=== PATIENT | female | born 1980 | race Caucasian/White ===

== ENCOUNTER 2019-12-24 06:25 | Day surgery (SDC) | payer BC ==
[2019-12-20 11:56] VITALS: BMI 29.7
--- NOTE | 2019-12-21 15:52 | P.HPOB ---
History of Present Illness H&P Date: 12/21/19 Chief Complaint: Family planning: Menorrhagia Patient is a 39-year-old female who has heavy vaginal bleeding that is debilitating. Symptoms have been going on for several years and progressively worsened and got to the point where she is unable to function well. She is a s moker therefore are mobile manipulation is not a good option. She is completed her family planning and therefore would actually like a tubal ligation as well. She is scheduled for a D&C with hysteroscopy and NovaSure and a laparoscopic tubal occlusion. Risks/benefits/alternatives were discussed with patient in detail and did include but were not limited to bleeding and infection, Paxil bladder or bowel, past surgeries nerve injuries ureteral injuries Past Medical History Additional Past Medical History / Comment(s): HEAVY MENSES History of Any Multi-Drug Resistant Organisms: None Reported Past Surgical History: Section Additional Past Surgical History / Comment(s): C-SEC X 2 Past Anesthesia/Blood Transfusion Reactions: No Reported Reaction Smoking Status: Current every day smoker - Past Family History Mother Family Medical History: No Reported History Medications and Allergies Home Medications Medication Instructions Recorded Confirmed Type HYDROcodone/APAP 10-325MG [[place] 1 tab PO TID PRN 09/25/19 12/20/19 History 10-325] Ibuprofen [Motrin] 800 mg PO Q8H PRN 09/25/19 12/20/19 History Allergies Allergy/AdvReac Type Severity Reaction Status Date / Time No Known Allergies Allergy Verified 12/20/19 11:50 Exam Osteopathic Statement: *. No significant issues noted on an osteopathic structural exam other than those noted in the History and Physical/Consult. - OBG Physical Exam Breast: both: normal (no masses) Abdomen: bowel sounds normal, no diffuse tenderness, no bruit present, no guarding noted, no hepatomegaly, no splenomegaly, no mass Vulva: both: normal Vagina: normal moisture, no discharge Cervix: no lesion, no discharge Uterus: normal size, normal contour Adnexa: both: normal Anus/Rectum: normal perianal skin, no rectal mass, no hemorrhoids, heme negative
[~2019-12-24 06:25] MED LIST: DEXAMETHASONE SOD PHOSPHATE 10 MG/ML 1 ML VIAL IV ONE; LACTATED RINGERS 1,000 ML IV SCH; LIDOCAINE 1% (10MG/ML) FOR IV START INTRADERMA PRN; Pre Op ABX Message 1 EACH MISC MISCELLANE ONE
[2019-12-24] MEDS: ONDANSETRON 4 MG/2 ML VIAL IVP ONE ×2 (07:04→12:50)
[2019-12-24] MEDS ORDERED: LIDOCAINE 1% INJ 10MG/ML (20 ML MDV) ONE ×2 (07:35→12:55)
[2019-12-24] MEDS ORDERED: SUCCINYLCHOLINE CHLORIDE 100 MG/5 ML SYR IV ONE ×2 (07:35→12:55)
[2019-12-24] MEDS ORDERED: MIDAZOLAM 2 MG/2 ML VIAL ONE ×2 (07:35→12:55)
[2019-12-24] MEDS ORDERED: PROPOFOL 10 MG/ML 20 ML VIAL IV ONE ×2 (07:35→12:55)
[2019-12-24] MEDS ORDERED: ROCURONIUM BROMIDE 10 MG/ML 5 ML VIAL IV ONE (07:35)
[2019-12-24] MEDS ORDERED: KETOROLAC 30 MG/ML 1 ML VIAL ONE (07:35)
[2019-12-24] MEDS ORDERED: fentaNYL (PF) 50 MCG/ML 2 ML AMP ONE ×2 (07:35→12:55)
[2019-12-24] MEDS ORDERED: BUPIVACAINE (PF) 0.25% 30 ML VIAL SQ ONE (08:09)
--- NOTE | 2019-12-24 08:25 | P.OP ---
Date of Procedure: 12/24/19 Preoperative Diagnosis: Family planning and menorrhagia Postoperative Diagnosis: Same Procedure(s) Performed: D&C with hysteroscopy, NovaSure and laparoscopic tubal occlusion with Filshie clips Anesthesia: MARIETTA Surgeon: Primitivo Giang Estimated Blood Loss (ml): 5 Urine output (ml): 10 Pathology: other (Uterine curettings) Condition: stable Disposition: same day Operative Findings: Tissue pathology pending Description of Procedure: Patient was taken to the operative suite where a general anesthetic was found be adequate. She was prepped and draped in normal sterile fashion and placed in the dorsal lithotomy position. Initially a weighted speculum was inserted into the vagina and the anterior lip of the cervix was identified grasped with single-tooth tenaculum and cervix was then dilated. Uterus was then sounded to 10 cm. Once this was completed a uterine manipulator was inserted without difficulty and all other incidents removed. Red rubber cath was then used to drain the bladder of urine. Once this was completed gloves were changed and attention was turned to abdominal portion procedure where 3 mL of quarter percent Marcaine was injected periumbilically. Through this injected anesthetic a 5 mm skin incision was made and through this incision, under direct visualization, a 5 mm port and sleeve were inserted without difficulty. Once completed patient was placed in steep Trendelenburg position and a second 8 mm skin incision was made 3 cm above the pubic symphysis in the midline. An 8 mm port and sleeve were inserted and to this incision under direct visualization. Uterus was then elevated and observations pelvis were noted. Some scant adhesions were noted on the right fallopian tube and ovary but otherwise the remainder of the pelvis was normal. The scopes were then applied first the right tube than left tube 2-3 cm from uterine cornu. Once this was completed seeing no bleeding, gas was allowed to expel from the abdomen and ports were removed. 5 deep breaths were provided during this process. 4-0 Vicryl was then used to close these at incision subcuticular. The remaining 7 mL of Marcaine was then injected around these incisions. Once this was completed we did return to the vagina and a speculum was reinserted and tenaculum was used to grasp the cervix. Camera was then inserted into the uterine cavity with proliferative endometrium noted. Camera was then removed and sharp curettings of the endometrium were obtained. This tissue was collected placed on [facility] and sent to pathology. Once this was completed NovaSure system was brought in with length of 4.5 and a width of 4 was tested. Once it passes patency test was needled and burned for 74 seconds. Conclusion the burn camera was reinserted and excellent burn was noted. Plan - Discharge Summary Discharge Rx Participant: Yes New Discharge Prescriptions: No Action Ibuprofen [Motrin] 800 mg PO Q8H PRN PRN Reason: Pain HYDROcodone/APAP 10-325MG [[place] 10-325] 1 tab PO TID PRN PRN Reason: Pain Discharge Medication List HYDROcodone/APAP 10-325MG [[place] 10-325] 1 tab PO TID PRN 09/25/19 [History] Ibuprofen [Motrin] 800 mg PO Q8H PRN 09/25/19 [History] Follow up Appointment(s)/Referral(s): Primitivo Giang DO [Doctor of Osteopathic Medicine] - 2 Weeks Activity/Diet/Wound Care/Special Instructions: No heavy lifting, limit stairs and driving, pelvic rest. If any high temperatures, heavy bleeding, or severe pain call my office Discharge Disposition: HOME SELF-CARE
[2019-12-24] MEDS ORDERED: METOCLOPRAMIDE 5 MG/ML 2 ML VIAL IVP ONE (08:35)
[2019-12-24] MEDS: HYDROmorphone 0.5 MG/0.5 ML SYRINGE IVP PRN ×2 (08:43→08:48)
[2019-12-24] MEDS ORDERED: hydrALAZINE HCL 20 MG/ML 1 ML VIAL IVP ONE (09:19)
[2019-12-24] MEDS ORDERED: LACTATED RINGERS 1,000 ML IV ONE ×2 (09:28→13:04)
[2019-12-24] MEDS ORDERED: HYDROcodone/APAP 10-325MG 1 EACH TAB PO ONE (10:05)
[2019-12-24] MEDS ORDERED: IV FLUID CONTINUATION 1,000 ML IV ONE (12:55)
[2019-12-24] MEDS ORDERED: diphenhydrAMINE 50 MG/ML 1 ML VIAL ONE (12:55)
[2019-12-24] MEDS ORDERED: KETAMINE 10 MG/ML 20 ML VIAL ONE (12:55)
--- NOTE | 2019-12-24 13:19 | P.OP ---
Date of Procedure: 12/24/19 Preoperative Diagnosis: Postoperative pain questionable hematometrium Postoperative Diagnosis: Same Procedure(s) Performed: Exam under anesthesia with hysteroscopy Anesthesia: MARIETTA Surgeon: Primitivo Giang Estimated Blood Loss (ml): 1 Pathology: none sent Condition: stable Disposition: same day Operative Findings: Patient was seen in recovery after being called for intractable pain. She really the pain was also suprapubic and was sharp and stabbing and had progressively worsened since the surgery. There did not seem to be any length to the laparoscopy or the tubal ligation therefore the primary concern was over blood buildup in her uterus. An exam under anesthesia was therefore performed with hysteroscopy Description of Procedure: Patient was taken the operative suite where a general anesthetic was found be adequate. She was prepped and draped in normal sterile fashion and placed in the dorsal lithotomy position. Initially a weighted speculum was inserted in vagina and the anterior lip cervix identified and grasped with single-tooth ten aculum. Cervix was then dilated with approximately 10 mL of blood and fluid that drained out. We did do gentle curettings to see if there is any tissue that had been blocking the cervix is unclear if any of that made a difference. A hysteroscopy was then done and there was still some tissue in the lining that was then removed with a polyp forcep to hopefully clinic the pain that she was having. Once this was concluded patient was taken to the recovery room in stable condition. All incidents were also removed and sponge lap and needle counts were all correct 2. Plan - Discharge Summary Discharge Rx Participant: Yes New Discharge Prescriptions: No Action Ibuprofen [Motrin] 800 mg PO Q8H PRN PRN Reason: Pain HYDROcodone/APAP 10-325MG [[place] 10-325] 1 tab PO TID PRN PRN Reason: Pain Discharge Medication List HYDROcodone/APAP 10-325MG [[place] 10-325] 1 tab PO TID PRN 09/25/19 [History] Ibuprofen [Motrin] 800 mg PO Q8H PRN 09/25/19 [History] Follow up Appointment(s)/Referral(s): Primitivo Giang DO [Doctor of Osteopathic Medicine] - 2 Weeks Patient Instructions/Handouts: *Surgery [facility] - ([facility]) Endometrial Ablation Post-Op Instructions, *Surgery [facility] - (Anesthesia) Discharge Instructions Outpatient Surgery, Tubal Ligation (DC), Hysteroscopy (DC) Activity/Diet/Wound Care/Special Instructions: No heavy lifting, limit stairs and driving, pelvic rest. If any high temperatures, heavy bleeding, or severe pain call my office Discharge Disposition: HOME SELF-CARE
[2019-12-24 13:35] VITALS: RESP 16; TEMP 97
[2019-12-24] MEDS ORDERED: IBUPROFEN 200 MG TAB PO ONE (14:52)
[2019-12-24 15:14] VITALS: BP 166/83; PULSE 51
== END 2019-12-24 15:37 | disposition home or self-care (01) ==
LOC: OR 06:25
PROVIDERS: ATTEND Obstetrics & Gynecology
DX: Z30.2 Encounter for sterilization (principal); N92.0 Excessive and frequent menstruation with regular cycle; G89.18 Other acute postprocedural pain; F17.210 Nicotine dependence, cigarettes, uncomplicated; M79.7 Fibromyalgia; Z98.891 History of uterine scar from previous surgery
CPT/HCPCS: 81025; 88305; 58671; 58563; J2250; J0360; J1200; J1100; J2765; J2405; J2001; J3010; J1885; J0330; J2704; J1170

== ENCOUNTER → 2021-03-07 | Outpatient (CLI) | payer OTHER ==
--- NOTE | 2021-03-09 07:58 | US ---
EXAMINATION TYPE: US pelvis complete transvag DATE OF EXAM: 03/07/2021 COMPARISON: NONE CLINICAL HISTORY: R10.2 pelvic pain. TECHNIQUE: Transvaginal (TV) and Transabdominal (TA) . Transabdominal sonographic images of the pel vis were acquired. Transvaginal sonographic images were medically necessary to better assess the fol lowing anatomy: ovaries Date of LMP: 03/03/2021 EXAM MEASUREMENTS: Uterus: 8.6 x 5.3 x 6.3 cm Endometrial Stripe: 0.7 cm Right Ovary: 2.5 x 1.6 x 2.6 cm Left Ovary: 2.9 x 1.3 x 2.5 cm 1. Uterus: Anteverted small anterior fibroid measures 1.2 x 1.2 x 1.3 cm 2. Endometrium: wnl 3. Right Ovary: wnl 4. Left Ovary: wnl 5. Bilateral Adnexa: wnl 6. Posterior cul-de-sac: no free fluid IMPRESSION: Leiomyomatous change of the uterus.
== END | disposition home or self-care (01) ==
LOC: RADUSWWP 11:38
PROVIDERS: ATTEND Obstetrics & Gynecology
DX: D25.9 Leiomyoma of uterus, unspecified (principal)
CPT/HCPCS: 76830; 76856

== ENCOUNTER → 2021-06-17 | Outpatient (CLI) | payer OTHER | END | disposition home or self-care (01) | LOC: LABPAT 09:21 | PROVIDERS: ATTEND Obstetrics & Gynecology | DX: Z53.9 Procedure and treatment not carried out, unspecified reason (principal) ==

== ENCOUNTER 2021-06-18 05:59 | Observation (INO) | payer OTHER ==
[2021-06-12 14:57] VITALS: BMI 26.1
[2021-06-17 10:11] LABS: Basophils % (A) 0 %; Eosinophils # (A) 0.3 k/uL (0-0.7); Eosinophils % (A) 2 %; HCT 44.7 % (34.0-46.0); HGB 14.8 gm/dL (11.4-16.0); Lymphocytes # (A) 1.8 k/uL (1.0-4.8); Lymphocytes % (A) 13 %; MCHC 33.2 g/dL (31.0-37.0); MCV 93.5 fL (80.0-100.0); Mean Platelet Volume 8.4; Monocytes # (A) 0.6 k/uL (0-1.0); Monocytes % (A) 4 %; Neutrophils # (A) 11.3 k/uL (1.3-7.7); Neutrophils % (A) 80 %; Platelet Count 242 k/uL (150-450); RBC 4.78 m/uL (3.80-5.40); RDW 12.7 % (11.5-15.5); WBC 14.2 k/uL (3.8-10.6)
[2021-06-17 10:29] LABS: African American GFR (CKD) >90 (>60 ml/min/1.73 sqM); Anion Gap 8 mmol/L; Blood Urea Nitrogen 14 mg/dL (7-17); Calcium 8.9 mg/dL (8.4-10.2); Carbon Dioxide 23 mmol/L (22-30); Chloride 105 mmol/L (98-107); Glucose 125 mg/dL (74-99); Non-African American GFR(CKD) >90 (>60 ml/min/1.73 sqM); Potassium 4.5 mmol/L (3.5-5.1); Sodium 136 mmol/L (137-145)
--- NOTE | 2021-06-17 16:29 | P.HPOB ---
History of Present Illness H&P Date: 06/17/21 Chief Complaint: Pelvic pain: Post-ablative syndrome Patient is a 40-year-old female who underwent a NovaSure ablation and since that time is had continuing bleeding and significant pelvic pain. 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 Risks/benefits/alternatives reviewed with the patient in detail and did include but were not limited to bleeding and infection, damage to bladder or bowel, vascular degrees, nerve injuries, ureteral injuries even potentially . She is at increased risk for certain for bladder injury as she is had 2 prior sections. This was clearly defined her and all questions were answered for her prior to proceeding to the operating room. On physical exam vital signs are stable and afebrile. Heart regular, lungs clear, extremities without pain. Abdomen is soft and nontender positive bowel sounds are noted area pelvic exam is otherwise unremarkable. Assessment post blade syndrome plan robotic-assisted left scopic hysterectomy with bilateral salpingectomy Past Medical History Past Medical History: Fibromyalgia, Pneumonia Additional Past Medical History / Comment(s): migraines, anemia, History of Any Multi-Drug Resistant Organisms: None Reported Past Surgical History: Section, Tubal Ligation, Uterine Ablation Additional Past Surgical History / Comment(s): C-SEC X 2 Past Anesthesia/Blood Transfusion Reactions: No Reported Reaction Smoking Status: Current every day smoker - Past Family History Mother Family Medical History: No Reported History Father Family Medical History: Cancer Additional Family Medical History / Comment(s): prostate Medications and Allergies Home Medications Medication Instructions Recorded Confirmed Type Cholecalciferol [Vitamin D3 (25 100 mcg PO DAILY 06/12/21 06/12/21 History Mcg = 1000 Iu)] Ferrous Sulfate [Feosol] 650 mg PO DAILY 06/12/21 06/12/21 History Multivit with Calcium,Iron,Min 1 each PO DAILY 06/12/21 06/12/21 History [Women's Multivitamin] Vitamin C(Dose Unknown) 1 tab PO DAILY 06/12/21 06/12/21 History Allergies Allergy/AdvReac Type Severity Reaction Status Date / Time No Known Allergies Allergy Verified 06/12/21 14:46 Exam Osteopathic Statement: *. No significant issues noted on an osteopathic structural exam other than those noted in the History and Physical/Consult. - OBG Physical Exam Breast: both: normal (no masses) Abdomen: bowel sounds normal, no diffuse tenderness, no bruit present, no guardi ng noted, no hepatomegaly, no splenomegaly, no mass Vulva: both: normal Vagina: normal moisture, no discharge Cervix: no lesion, no discharge Uterus: normal size, normal contour Adnexa: both: normal Anus/Rectum: normal perianal skin, no rectal mass, no hemorrhoids, heme negative Results Result Diagrams: 06/17/21 09:28 06/17/21 09:28 Abnormal Lab Results - Last 24 Hours (Table) 06/17/21 06/17/21 Range/Units 09:28 09:28 WBC 14.2 H (3.8-10.6) k/uL Neutrophils # 11.3 H (1.3-7.7) k/uL Sodium 136 L (137-145) mmol/L Glucose 125 H (74-99) mg/dL
[2021-06-18] MEDS ORDERED: LIDOCAINE 1% (10MG/ML) FOR IV START INTRADERMA PRN (06:14)
[2021-06-18] MEDS ORDERED: DEXAMETHASONE SOD PHOSPHATE 4 MG/ML 1 ML VIAL IV ONE (06:14)
[2021-06-18] MEDS ORDERED: ONDANSETRON 4 MG/2 ML VIAL IVP ONE (06:14)
[2021-06-18] MEDS ORDERED: SCOPOLAMINE 1.5MG/72HR PATCH TRANSDERM ONE (06:14)
[2021-06-18] MEDS ORDERED: METOCLOPRAMIDE 5 MG/ML 2 ML VIAL IVP PRN (07:00)
[2021-06-18] MEDS: LACTATED RINGERS 1,000 ML IV SCH (07:03)
[2021-06-18] MEDS: MIDAZOLAM 2 MG/2 ML VIAL IV PRN ×2 (07:17→07:37)
[2021-06-18] MEDS ORDERED: fentaNYL (PF) 50 MCG/ML 5 ML AMP IVP ONE ×2 (07:17→07:37)
[2021-06-18] MEDS ORDERED: GLYCOPYRROLATE 0.2 MG/ML 2 ML VIAL ONE (07:35)
[2021-06-18] MEDS ORDERED: fentaNYL (PF) 50 MCG/ML 2 ML AMP ONE (07:35)
[2021-06-18] MEDS ORDERED: ROCURONIUM 10 MG/ML (5 ML VIAL) IV ONE (07:35)
[2021-06-18] MEDS ORDERED: PROPOFOL 10 MG/ML 20 ML VIAL IV ONE (07:35)
[2021-06-18] MEDS ORDERED: SUCCINYLCHOLINE CHLORIDE 100 MG/5 ML SYR IV ONE (07:35)
[2021-06-18] MEDS ORDERED: LIDOCAINE 1% INJ 10MG/ML (20 ML MDV) ONE (07:35)
[2021-06-18] MEDS ORDERED: NEOSTIGMINE 1 MG/ML 10 ML VIAL ONE (07:35)
[2021-06-18] MEDS ORDERED: ROPIVACAINE 5 MG/ML 30 ML VIAL ONE (07:35)
[2021-06-18] MEDS ORDERED: SODIUM CHLORIDE 0.9% (PF) 10 ML VIAL ONE (07:35)
[2021-06-18] MEDS ORDERED: BUPIVACAINE (PF) 0.25% 30 ML VIAL SQ ONE ×2 (08:10→09:03)
[2021-06-18] MEDS ORDERED: KETOROLAC 15 MG/ML 1 ML VIAL IVP PRN (09:10)
[2021-06-18] MEDS ORDERED: IBUPROFEN 600 MG TAB PO PRN (09:10)
[2021-06-18] MEDS ORDERED: ONDANSETRON 4 MG/2 ML VIAL IVP PRN (09:10)
[2021-06-18] MEDS ORDERED: HYDROcodone/APAP 5-325MG 1 EACH TAB PO PRN ×2 (09:11)
--- NOTE | 2021-06-18 09:16 | P.OP ---
Date of Procedure: 06/18/21 Preoperative Diagnosis: Menorrhagia: Pelvic pain: Post-ablative syndrome Postoperative Diagnosis: Same Procedure(s) Performed: Robotic-assisted laps Hysterectomy with bilateral salpingectomy and cystoscopy Anesthesia: MARIETTA Surgeon: Primiitvo Giang Butcher Head #1: Jyotsna Salmon Estimated Blood Loss (ml): 10 IV fluids (ml): 700 Urine output (ml): 75 Pathology: other (Uterus, cervix, fallopian tubes) Condition: stable Disposition: floor Operative Findings: Pathology pending Description of Procedure: Patient was taken to the operating suite where a general anesthetic was found be adequate. She was prepped and draped in the normal sterile fashion and placed in the dorsal following position. Initially a weighted speculum was inserted in the vagina and the anterior lip of cervix identified and grasped with a single- tooth tenaculum. Cervix was then sounded and uterus was sounded to 6 cm due to prior ablation. Cervix is dilated and then a 6 mm with 3 cm cup Mitra manipulato r was inserted without difficulty 6 stay sutures were placed at 3 and 9. Rivero cath was then placed and the remainder of the instruments were removed from the vagina. Gloves were then changed and attention was turned to abdominal portion procedure where 2 mL of quarter percent Marcaine was injected periumbilically. Through this injected anesthetic a 5 mm skin incision was made. Through this in cision, under direct visualization with an optical trocar and sleeve the camera was inserted. Once peritoneal placement was assured gas was allowed to fully inspect the abdomen and patient's placement steep Trendelenburg position. 2 lateral ports were then placed 10 cm lateral to the umbilicus on the right and left side and 8 mm da Mejia ports were placed. He is placed under direct visualization. A fourth port and sleeve was then inserted through a 170 incision between the left lateral and medial port and the medial port was exchanged for a da Mejia port and sleeve. Robot was then brought in and docked in once fully docked a scissor was placed on one arm and a [place] grasper in the 2 arm and at this point I broke scrub and went to the console. Uterus is then elevated and tipped the right-hand side left fallopian tube segment was excised with cautery and following this the utero-ovarian ligament was identified cauterized and transected. Moving through the mesosalpinx to the rou nd ligament tissues were cauterized and transected. [place]ley was then cauterized and transected and anterior posterior leafs the broad ligament were fully developed. Once this was accomplished cauterization the uterine vascularity on the left side of the uterus was performed cauterizing it and then cutting the tissues down to the layer of the bladder flap. Bladder flap was then identified elevated and entered with Metzenbaums. Using an undermining technique with [place] the tissue was undermined and incised across face uterus and then the bladder was bluntly dissected out of the operative field. In a similar fashion at this point the right side of the uterus was fully developed and the uterine vascularity around the cardinal/uterosacral ligaments were cauterized. Once the cup was easily identified the balloon was blown up in the Mitra manipulator and an anterior colpotomy was made. The cup was then followed 3 and 60 around the cervix she had when necessary to maintain excellent hemostasis. Once this was completed uterus was brought into the vagina to maintain pneumoperitoneum. Pedicles were verified to be hemostatic therefore the instruments were exchanged for a cardia grasper and a make suture cut and the vaginal cuff was closed with to OB lock suture in a running fashion. Once was completed pelvis was irrigated no bleeding is noted therefore all incidents removed gas was left allowed to expel from the abdomen [address] Salmon close incision subcuticular 4-0 Vicryl this point and the remaining 8 mL of quarter percent Marcaine was injected around these incisions. Concurrently I did a diagnostic cystoscopy with excellent flow noted from both ureteral jets. All instruments were then removed. Sponge, lap, needle counts were all correct 2. Patient was then taken to the recovery room in stable and satisfactory condition.
[2021-06-18] MEDS: HYDROmorphone 0.5 MG/0.5 ML SYRINGE IVP PRN ×2 (09:38→09:45)
[2021-06-18] MEDS ORDERED: KETOROLAC 30 MG/ML 1 ML VIAL ONE (09:40)
[2021-06-18] MEDS ORDERED: diphenhydrAMINE 50 MG/ML 1 ML VIAL ONE (09:54)
[2021-06-18] MEDS ORDERED: LACTATED RINGERS 1,000 ML IV ONE (09:58)
[2021-06-18] MEDS ORDERED: diphenhydrAMINE 50 MG/ML 1 ML VIAL IVP ONE (09:59)
--- NOTE | 2021-06-18 11:15 | P.ANPRN ---
Procedure Note - Anesthesia - Nerve Block Performed Bilateral Erector Spinae Single Time Out Performed: Yes (716) Date of Procedure: 06/18/21 Procedure Start Time: :17 Procedure Stop Time: :22 Location of Patient: PreOp Indication: Acute Post-Operative Pain, Requested by Surgeon Specifically requested for management of pain by DrTeja: Primitivo Giang Sedation Type: Sedate with meaningful contact maintained Preparation: Sterile Prep Position: Prone Catheter: None Needle Types: Pajunk Needle Gauge: 21 Ultrasound used to visualize needle placement: Yes Ultrasound used to observe medication spread: Yes Injectate: 0.5% Ropivacaine (see comment for volume) (15cc + 15cc nacl pf) Blood Aspirated: No Pain Paresthesia on Injection Noted: No Resistance on Injection: Normal Image Stored and Saved: Yes Events: Uneventful and Well Tolerated
[2021-06-18] MEDS: KETOROLAC 30 MG/ML 1 ML VIAL IVP PRN ×2 (15:41→21:14)
[2021-06-18] MEDS: SIMETHICONE 80 MG CHEWABLE PO PRN (15:41)
[2021-06-18] MEDS: SENNOSIDES-DOCUSATE SODIUM 1 EACH TAB PO SCH (20:17)
[2021-06-19] MEDS: KETOROLAC 30 MG/ML 1 ML VIAL IVP PRN ×2 (03:27→08:28)
[2021-06-19] MEDS: LACTATED RINGERS 1,000 ML IV SCH (03:33)
[2021-06-19 03:38] VITALS: RESP 18
[2021-06-19] MEDS: SIMETHICONE 80 MG CHEWABLE PO PRN (08:29)
[2021-06-19] MEDS: SENNOSIDES-DOCUSATE SODIUM 1 EACH TAB PO SCH (08:29)
[2021-06-19 08:42] VITALS: BP 111/66; PULSE 70; TEMP 98.5
--- NOTE | 2021-06-19 09:26 | P.DS ---
Providers Date of admission: 06/19/21 05:15 Expected date of discharge: 06/19/21 Attending physician: Primitivo Giang Primary care physician: Stated None Hospital Course: Patient is doing very well postop day 1. She is ambulating, voiding and tolerating her diet. She has also had a bowel movement. Vital signs are stable and she is afebrile. Heart regular, lungs clear, extremities without pain. Abdomen soft incisions are clean dry and intact. We'll plan discharged home later today. Vital signs are stable and afebrile. Prescription for Motrin and [place] or forward to the pharmacy and discharge instructions are thoroughly reviewed and all questions were answered for her. She'll follow up with me in 1 week. She is stable for discharge at this time. Patient Condition at Discharge: Good Plan - Discharge Summary Discharge Rx Participant: No New Discharge Prescriptions: New Ibuprofen [Motrin] 600 mg PO Q6HR PRN #30 tab PRN Reason: Pain HYDROcodone/APAP 5-325MG [[place] 5-325] 1 tab PO Q4HR PRN #30 tab PRN Reason: Pain No Action Cholecalciferol [Vitamin D3 (25 Mcg = 1000 Iu)] 100 mcg PO DAILY Ferrous Sulfate [Feosol] 650 mg PO DAILY Vitamin C(Dose Unknown) 1 tab PO DAILY Multivit with Calcium,Iron,Min [Women's Multivitamin] 1 each PO DAILY Discharge Medication List Cholecalciferol [Vitamin D3 (25 Mcg = 1000 Iu)] 100 mcg PO DAILY 06/12/21 [History] Ferrous Sulfate [Feosol] 650 mg PO DAILY 06/12/21 [History] Multivit with Calcium,Iron,Min [Women's Multivitamin] 1 each PO DAILY 06/12/21 [History] Vitamin C(Dose Unknown) 1 tab PO DAILY 06/12/21 [History] HYDROcodone/APAP 5-325MG [[place] 5-325] 1 tab PO Q4HR PRN #30 tab 06/19/21 [Rx] Ibuprofen [Motrin] 600 mg PO Q6HR PRN #30 tab 06/19/21 [Rx] Follow up Appointment(s)/Referral(s): Primitivo Giang DO [Doctor of Osteopathic Medicine] - 1 Week Activity/Diet/Wound Care/Special Instructions: no Heavy lifting, limit stairs and driving, and pelvic rest. If any high temperatures, heavy bleeding, or severe pain call my office. Showering is fine but no tub baths for minimum of 2 weeks Discharge Disposition: HOME SELF-CARE
== END 2021-06-19 10:34 | disposition home or self-care (01) ==
LOC: OR 05:59 → 6PED 09:46 → OR 06-19 05:15 → 6PED 06-19 05:15
PROVIDERS: ADMIT Obstetrics & Gynecology; ATTEND Obstetrics & Gynecology
DX: N99.85 Post endometrial ablation syndrome (principal); R10.2 Pelvic and perineal pain; N92.0 Excessive and frequent menstruation with regular cycle; N80.0 Endometriosis of uterus; M79.7 Fibromyalgia; G43.909 Migraine, unspecified, not intractable, without status migrainosus; D64.9 Anemia, unspecified; F17.210 Nicotine dependence, cigarettes, uncomplicated; Z20.822 Contact with and (suspected) exposure to COVID-19; Z98.891 History of uterine scar from previous surgery; Z98.890 Other specified postprocedural states; Z87.01 Personal history of pneumonia (recurrent); Z79.899 Other long term (current) drug therapy; Z80.42 Family history of malignant neoplasm of prostate
CPT/HCPCS: 58571; S2900; 64999; 80048; 81025; 85025; 86850; 86900; 86901; 87635; 88307